=== PATIENT | female | born 1955 | race Caucasian/White ===

== ENCOUNTER 2019-01-09 05:11 | Inpatient (IN) | payer OTHER ==
[~2019-01-09] VITALS: Ht 165.1 cm; Wt 117.0 kg
[2019-01-09 09:00] VITALS: BP 149/100
--- NOTE | 2019-01-09 09:00 | NUR ---
MS1/MEDICAL STAFF SERVICES COORDINATOR TO WA1 - ROOM 104 PT ARRIVED VIA GURNEY FROM [facility], TRANSFERRED TO HOSPITAL BED WITH MAXIMUM ASSISTANCE. PT A/O X 4, PLACED ON 2L O2 VIA N/C SATURATING @ 96%, RESPIRATIONS EVEN AND UNLABORED. LUNG SOUNDS CLEAR, NO EDEMA NOTED. IV SITE FLUSHED, PATENT WITH NO S/S OF INFECTION. PT RESTLESS D/T PAIN ON RIGHT FRACTURED SHOULDER, RATED 10/10. ADMITTED PROTOCOLS IN PROGRESS, AWAITING FOR ADMITTING ORDERS. CL WITHIN REACHED AND SAFETY MAINTAINED.
[2019-01-09] MEDS ORDERED: ALBU18HF2 IH (09:26)
[2019-01-09] MEDS ORDERED: MELA5TAB PO (09:26)
[2019-01-09] MEDS ORDERED: DICL100G16 TP (09:26)
[2019-01-09] MEDS ORDERED: GABA-534 PO (09:26)
[2019-01-09] MEDS ORDERED: LOSA50TA39 PO (09:26)
[2019-01-09] MEDS ORDERED: BENZ-13 PO (09:26)
[2019-01-09] MEDS ORDERED: CYCL10TA9 PO (09:26)
[2019-01-09] MEDS ORDERED: NYST15PO4 TP (09:26)
[2019-01-09] MEDS ORDERED: DOCU-141 PO (09:26)
[2019-01-09] MEDS ORDERED: MORPHINE SULFATE INJ 2 MG/ML DISP.SYRIN IV ONE (09:30)
[2019-01-09] MEDS ORDERED: EZET10TA32 PO (09:34)
[2019-01-09] MEDS ORDERED: DULO60CA64 PO (09:34)
[2019-01-09] MEDS ORDERED: LEVO137T2 PO (09:34)
[2019-01-09] MEDS ORDERED: METF500T7 PO (09:34)
--- NOTE | 2019-01-09 10:00 | NUR ---
MS1/RN ROUNDS - DR. BAKER UPDATED PT'S CONDITION. PT SEEN & EXAMINED BY DR. BAKER, WITH VERBAL ORDERS RECEIVED TO GIVE ONE TIME TYLENOL 650MG AND ADVIL 600MG. ORDER NOTED AND CARRIED OUT. MONITORING CONTINUED.
[2019-01-09] MEDS ORDERED: MAG HYDROX/AL HYDROX/SIMETH 30 ML UDC PO PRN (10:30)
[2019-01-09] MEDS ORDERED: ZOLPIDEM TARTRATE 5 MG TABLET PO PRN (10:30)
[2019-01-09] MEDS ORDERED: IBUPROFEN 200 MG TABLET PO ONE (10:30)
[2019-01-09] MEDS ORDERED: DOCUSATE SODIUM 100 MG CAPSULE PO PRN (10:30)
[2019-01-09] MEDS ORDERED: LORAZEPAM INJ 2 MG/ML VIAL IV ONE (10:30)
[2019-01-09] MEDS ORDERED: ONDANSETRON HCL/PF 4 MG/2 ML VIAL IVP PRN (10:30)
[2019-01-09] MEDS ORDERED: BENZONATATE 100 MG CAPSULE PO PRN (10:30)
[2019-01-09] MEDS ORDERED: MAGNESIUM HYDROXIDE 30 ML UDC PO PRN (10:30)
[2019-01-09] MEDS ORDERED: ACETAMINOPHEN 650 MG/20.3 ML UDC NG ONE (10:30)
[2019-01-09] MEDS ORDERED: ACETAMINOPHEN 325 MG TABLET PO PRN (10:30)
[2019-01-09] MEDS ORDERED: Z GUARD REMEDY 2 OZ OINT TP PRN (10:30)
[2019-01-09] MEDS ORDERED: DICLOFENAC TOPICAL 100 GM GEL..GM. TP PRN (10:30)
[2019-01-09 11:20] LABS: CALCIUM, SERUM 8.5 mg/dL (8.5-10.1); CREATININE 0.6 mg/dL (0.6-1.3)
[2019-01-09] MEDS ORDERED: KETOROLAC TROMETHAMINE INJ 30 MG/ML VIAL IM PRN (12:30)
[2019-01-09] MEDS: GABAPENTIN 300 MG CAPSULE PO SCH ×2 (12:49→16:57)
[2019-01-09] MEDS: CYCLOBENZAPRINE 10 MG TABLET PO SCH ×2 (12:49→16:57)
[2019-01-09] MEDS ORDERED: ALBUTEROL FS 2.5 MG/0.5 ML VIAL.NEB NEB PRN (13:30)
[2019-01-09] MEDS: MORPHINE SULFATE INJ 2 MG/ML DISP.SYRIN IV PRN ×3 (15:08→23:41)
--- NOTE | 2019-01-09 15:08 | NUR ---
MS1/APPLICATION DEVELOPMENT TEAM LEAD PT NOT RESTING WELL HAS POOR PAIN TOLERANCE, MORPHINE GIVEN PRN. MONITORING CONTINUED.
[2019-01-09 16:00] VITALS: BP 121/68
[2019-01-09] MEDS: NYSTATIN TOP POWDER 15 GM BOTTLE TP SCH (17:06)
--- NOTE | 2019-01-09 17:33 | NUR ---
MS1/RN PM ROUNDS ON ROUNDS NO CHANGE OF CONDITION PATIENT HAVING PAIN RATE 10/10 EVEN AFTER GIVEN MORPHINE. PATIENT WAS OFFERED PM CARE ,PATIENT REFUSED MONITORING CONTINUED.
--- NOTE | 2019-01-09 19:30 | NUR ---
MS RN OPENING NOTE RECEIVED PATIENT A/O X3. PATIENT SEEMS DROWSY. ON ROOM AIR WITH NO SIGNS OF SOB. PATIENT COMPLAINS OF PAIN ON RIGHT SHOULDER WILL ADMINISTER PAIN MEDICATION PRESCRIBED. PATIENT HAS IV ON LAC #20, PATENT AND FLUSHING. PATIENTS SKIN IS INTACT. PATIENT HAS BATHROOM PRIVILEGES WITH ASSISTANCE. ALL SAFETY PRECAUTIONS ARE APPLIED. WILL CONTINUE TO MONITOR PATIENT
--- NOTE | 2019-01-09 19:35 | NUR ---
MS 1 /RN AM SHIFT END NOTES ALL NEEDS MET , NO ACUTE CHANGE OF CONDITION DURING THE SHIFT PATIENT . PAIN MEDICATION DOES SEEM TO WORK. PRIMARY DOCTOR IS AWARE PATIENT ENDORSED TO PM SHIFT NURSE TO CONTINUE CARE CALL LIGHT WITH IN REACH SAFETY MAINTAINED .
[2019-01-09 20:00] VITALS: BP 131/73
[2019-01-09] MEDS: KETOROLAC TROMETHAMINE INJ 30 MG/ML VIAL IV PRN (21:37)
[2019-01-09] MEDS ORDERED: Medication Not On Formulary EA (Melatonin 10 MG) PO SCH (22:00)
[2019-01-09] MEDS ORDERED: EZETIMIBE 10 MG TABLET PO SCH (22:00)
[2019-01-10 04:00] VITALS: BP 137/88
[2019-01-10] MEDS: MORPHINE SULFATE INJ 2 MG/ML DISP.SYRIN IV PRN ×3 (04:00→12:33)
[2019-01-10 06:24] LABS: BASOPHILS # (AUTO) 0.1 /CMM (0.0-0.2); BASOPHILS % (AUTO) 0.5 % (0.0-2.0); EOSINOPHILS % (AUTO) 3.4 % (0.0-6.0); HEMATOCRIT 40 % (33-45); HEMOGLOBIN 13.2 g/dL (11.5-14.8); LYMPHOCYTES # (AUTO) 2.2 /CMM (0.8-4.8); LYMPHOCYTES % (AUTO) 21.4 % (20.0-44.0); MEAN CORPUSCULAR HGB CONC 33 g/dl (31.0-36.0); MEAN CORPUSCULAR VOLUME 90 fL (82-100); MONOCYTES # (AUTO) 0.9 /CMM (0.1-1.30); NEUTROPHILS # (AUTO) 6.6 /CMM (1.8-8.9); NEUTROPHILS % (AUTO) 65.7 % (43.0-81.0); PLATELET COUNT (AUTO) 186 /CMM (150-450); WHITE BLOOD COUNT (AUTO) 10.1 K/uL (4.3-11.0)
[2019-01-10 07:04] LABS: CALCIUM, SERUM 8.4 mg/dL (8.5-10.1); CREATININE 0.6 mg/dL (0.6-1.3); PHOSPHORUS 3.4 mg/dL (2.5-4.9); POTASSIUM 3.8 mmol/L (3.5-5.1)
--- NOTE | 2019-01-10 07:05 | NUR ---
MS RN OPENING NOTES RECEIVED PT LYING ON BED.ALERT/ORIENTED X4.ON 2LPM O2 VIA NC CONTINUOUSLY.NO SOB AND ACUTE DISTRESS NOTED.REFUSED TO PUT RIGHT SHOULDER IMMOBILIZER.COMPLAINT OF PAIN 9/10 ON RIGHT SHOULDER.IV LINE IS ON LEFT AC G20,SL.SITE IS CLEAN,DRY AND INTACT.NO INFILTRATION NOTED.SAFETY IS MAINTAINED AT ALL TIMES.BED IS IN LOW POSITION AND LOCKED.CALL LIGHT IS WITHIN REACH.WILL CONTINUE TO MONITOR THE PT CLOSELY.
[2019-01-10 08:00] VITALS: BP 137/79
--- NOTE | 2019-01-10 08:04 | NUR ---
MS RN NOTE PATIENT IN BED WITH THE CONSISTENT COMPLAIN OF PAIN. LET THE MORNING NURSE KNOW ABOUT THE PAIN OF 10. ALL SAFETY PRECAUTIONS APPLIED. ENDORSED TO MORNING NURSE
[2019-01-10] MEDS: CYCLOBENZAPRINE 10 MG TABLET PO SCH ×2 (08:59→12:32)
[2019-01-10] MEDS: GABAPENTIN 300 MG CAPSULE PO SCH ×2 (08:59→12:32)
[2019-01-10 09:00] VITALS: BP 137/79
[2019-01-10] MEDS ORDERED: DULOXETINE HCL 30 MG CAPSULE.DR PO SCH (09:00)
[2019-01-10] MEDS ORDERED: LOSARTAN POTASSIUM 50 MG TABLET PO SCH (09:00)
[2019-01-10] MEDS ORDERED: LEVOTHYROXINE SODIUM 137 MCG TABLET PO SCH (09:00)
[2019-01-10] MEDS ORDERED: METFORMIN XR 500 MG TAB.SR.24H PO SCH (09:00)
[2019-01-10] MEDS: KETOROLAC TROMETHAMINE INJ 30 MG/ML VIAL IV PRN (09:01)
[2019-01-10] MEDS: NYSTATIN TOP POWDER 15 GM BOTTLE TP SCH (09:02)
[2019-01-10] MEDS: HYDROCODONE/APAP 5/325MG 1 EACH TABLET PO PRN ×2 (10:19→14:29)
--- NOTE | 2019-01-10 14:30 | NUR ---
MS ASSISTANT SECRETARY NOTES ORDERED TO DISCHARGE TO HOME PER PT REQUEST.ALL THE DISCHARGE MEDICATIONS AND INSTRUCTIONS GIVEN TO THE PT.MEDICATION PRESCRIPTION GIVEN TO THE PT.VITAL SIGNS CHECKED.PAIN MEDICINES NORCO 5/325MG TAB IS GIVEN FOR PAIN 7/10 ON RIGHT SHOULDER.IV LINE FROM LEFT AC G20 IS REMOVED.NO BLEEDING NOTED.RIGHT KNEE IMMOBILIZER IS GIVEN AND PLACED.CD[facility]S FROM [facility] AND [facility] GIVEN TO THE PT.PT PICKED UP TO THE HOME BY THE GERMAINE VIA PRIVATE CAR.PT WENT TO THE PARKING LOT BY AMBULATING SHE REFUSED WHEELCHAIR.NO COMPLICATIONS NOTED.
== END 2019-01-10 19:00 | disposition home or self-care (01) | DRG 342 ==
LOC: MEDSG1 08:53
PROVIDERS: ADMIT Family Medicine; ATTEND Family Medicine
DX: S42.201A Unspecified fracture of upper end of right humerus, initial encounter for closed fracture (principal); Z68.41 Body mass index [BMI] 40.0-44.9, adult; E11.9 Type 2 diabetes mellitus without complications; E78.5 Hyperlipidemia, unspecified; W18.30XA Fall on same level, unspecified, initial encounter; Y92.89 Other specified places as the place of occurrence of the external cause; E89.0 Postprocedural hypothyroidism; Z96.649 Presence of unspecified artificial hip joint; Z88.0 Allergy status to penicillin; E66.9 Obesity, unspecified
CPT/HCPCS: 36415; 73080-TC; 73110; 80048-TC; 80061-TC; 83735-TC; 84100-TC; 85025-TC; 87081-TC; A4565; G0378; J1885; J2060; J2270